=== PATIENT | male | born 1985 | race Caucasian/White ===

== ENCOUNTER 2021-05-06 09:44 | Emergency (ER) | payer BC ==
[2021-05-06 09:55] VITALS: BMI 31.7
[2021-05-06 10:47] LABS: BASO % 0.6 % (0-2.0); EOS % 0.2 % (0-4.5); HEMATOCRIT 47.5 % (35.4-49); HEMOGLOBIN 16.1 GM/dL (11.7-16.9); LYMPH % 22.1 % (8-40); MCH 26.2 pg (25.7-33.7); MCHC 33.9 g/dl (32.0-35.9); MEAN CELL VOLUME 77.3 fl (80-96); MONO % 2.7 % (3.8-10.2); NEUT % 74.4 % (42.8-82.8); PLATELET COUNT 367 10^3/uL (134-434); RBC 6.14 M/mm3 (4.00-5.60); RDW 13.7 % (11.9-15.9); WHITE BLOOD COUNT 11.1 K/mm3 (4.0-10.0)
[2021-05-06] MEDS ORDERED: MAG HYDROX/AL HYDROX/SIMETH 30 ML UNIT-DOSE CUP PO ONE (10:47)
[2021-05-06] MEDS ORDERED: FAMOTIDINE 20 MG/50 ML IVPB 20 MG/50 ML MG IVPB ONE ×2 (10:47→10:56)
[2021-05-06] MEDS ORDERED: ACETAMINOPHEN 500 MG TABLET (FP) PO ONE (10:47)
[2021-05-06] MEDS ORDERED: ACETAMINOPHEN 325 MG TABLET (FP) ONE (10:56)
[2021-05-06] MEDS ORDERED: MAG HYDROX/AL HYDROX/SIMETH 30 ML UNIT-DOSE CUP ONE (10:59)
[2021-05-06] MEDS ORDERED: SODIUM CHLORIDE 0.9% 500 ML INFUS.BAG IV ONE (10:59)
[2021-05-06 11:14] LABS: CALCIUM 10.5 mg/dL (8.5-10.1)
[2021-05-06 11:15] LABS: ALBUMIN 4.9 g/dl (3.4-5.0); BLOOD UREA NITROGEN 14.2 mg/dL (7-18); MAGNESIUM 2.3 mg/dL (1.8-2.4)
[2021-05-06 11:17] LABS: CREATININE 1.3 mg/dL (0.55-1.3); PHOSPHOROUS 2.3 mg/dL (2.5-4.9)
[2021-05-06 11:19] LABS: BILIRUBIN,TOTAL 0.7 mg/dL (0.2-1); TOT PROT 8.6 g/dl (6.4-8.2)
[2021-05-06 13:53] VITALS: TEMP 98
[2021-05-06 15:30] VITALS: BP 150/93; PULSE 91
== END 2021-05-06 15:30 | disposition home or self-care (01) ==
LOC: JER 09:44
PROC: 3E033GC Introduction of Other Therapeutic Substance into Peripheral Vein, Percutaneous Approach (ICD-10-PCS; principal; 2021-05-06)
DX: R10.9 Unspecified abdominal pain (principal)
CPT/HCPCS: 36415; 71046-TC-FY; 80053; 83690; 83735; 84100; 84436; 84439; 84443; 84484; 85025; 93005; 93010; 93308; 99285-25

== ENCOUNTER 2021-08-25 16:34 | Emergency (ER) | payer BC ==
[2021-08-25 16:59] VITALS: BP 156/102; PULSE 95; TEMP 99; BMI 30.2
== END 2021-08-25 17:59 | disposition home or self-care (01) ==
LOC: JERFT 16:34
DX: L72.3 Sebaceous cyst (principal)
CPT/HCPCS: 99283-25